=== PATIENT | female | born 1980 ===

== ENCOUNTER 2018-07-19 09:50 | Emergency (ER) | payer MEDICAID ==
[2018-07-19 10:26] VITALS: RESP 18; TEMP 98.5
--- NOTE | 2018-07-19 11:16 | ED PDOC ---
Arrival/HPI - General Chief Complaint: Female Genitourinary Time Seen by Provider: 07/19/18 10:23 Historian: Patient - History of Present Illness Narrative History of Present Illness (Text): 07/19/18 11:22 38 year old female, with no significant past medical history, presents to emergency department complaining of left-sided, lower back pain since this morning. Patient reports this is her 6th and states she has not visited any doctor so far or gotten an ultrasound. Patient states she last felt movement last night. Patient rates her level of current pain as a "5" and denies taking any medication for it. Patient denies any urinary symptoms, fevers, chills, headache, dizziness, chest pain, shortness of breath, cough, abdominal pain, nausea, vomiting, diarrhea, neck pain, or any other complaints. Patient denies any vaginal bleeding or contractions. Time/Duration: Other (morning ) Symptom Onset: Gradual Symptom Course: Unchanged Severity Level: 5 Activities at Onset: Light Context: Home Past Medical History - Provider Review Nursing Documentation Reviewed: Yes - Psychiatric Hx Substance Use: No - Anesthesia Hx Anesthesia: No Hx Anesthesia Reactions: No Hx Malignant Hyperthermia: No Family/Social History - Physician Review Nursing Documentation Reviewed: Yes Family/Social History: Unknown Family HX Smoking Status: Never Smoked Hx Alcohol Use: No Hx Substance Use: No Allergies/Home Meds Allergies/Adverse Reactions: Allergies No Known Allergies Allergy (Verified 07/19/18 10:18) Review of Systems - Physician Review All systems were reviewed & negative as marked: Yes - Review of Systems Constitutional: absent: Fevers Respiratory: absent: SOB, Cough, Wheezing Gastrointestinal: absent: Nausea, Vomiting Genitourinary Female: absent: Frequency, Hematuria, Urine Output Changes Musculoskeletal: Back Pain (lower back pain) Skin: absent: Rash Neurological: absent: Headache, Dizziness Physical Exam Vital Signs Temp Pulse Resp BP Pulse Ox 07/19/18 09:50 98.5 F 94 H 18 129/86 100 Temperature: Afebrile Blood Pressure: Normal Pulse: Regular Respiratory Rate: Normal Appearance: Positive for: Well-Appearing, Non-Toxic, Comfortable Pain Distress: None Mental Status: Positive for: Alert and Oriented X 3 - Systems Exam Head: Present: Atraumatic, Normocephalic Pupils: Present: PERRL Extroacular Muscles: Present: EOMI Conjunctiva: Present: Normal Mouth: Present: Moist Mucous Membranes Neck: Present: Normal Range of Motion Respiratory/Chest: Present: Clear to Auscultation, Good Air Exchange. No: Respiratory Distress, Accessory Muscle Use Cardiovascular: Present: Regular Rate and Rhythm, Normal S1, S2. No: Murmurs Abdomen: Present: Other (gravid abdomen). No: Tenderness, Distention, Perito concepcion Signs Back: Present: Normal Inspection, Other (mild paraspinal tenderness to right lower back ) Upper Extremity: Present: Normal Inspection. No: Cyanosis, Edema Lower Extremity: Present: Normal Inspection. No: Edema Neurological: Present: GCS=15, CN II-XII Intact, Speech Normal Skin: Present: Warm, Dry, Normal Color. No: Rashes Psychiatric: Present: Alert, Oriented x 3, Normal Insight, Normal Concentration Medical Decision Making ED Course and Treatment: 07/19/18 11:19 Impression: 38 year old female presents to emergency department complaining of lower, left-sided back pain since this morning. Differential Diagnosis included but are not limited to: -- Pyelonephritis -- UTI -- kidney stone Plan: -- Labs -- Urinalysis -- US -- Reassess and disposition Prior Visits: Notes and results from previous visits were reviewed. Progress Notes: - RAD Interpretation Narrative RAD Interpretations (Text): 07/19/18 14:54 US, reviewed by radiologist: Impression: Single living fetus with a composite sonographic age of 29 weeks 4 days. Estimated heart rate 136 beats per min. Radiology Orders: 07/19/18 10:30 AGE [US] Stat Pig Breeder: Radiologist - Scribe Statement The provider has reviewed the documentation as recorded by the Scribe Yoli Hamilton All medical record entries made by the Scribe were at my direction and personally dictated by me. I have reviewed the chart and agree that the record accurately reflects my personal performance of the history, physical exam, medical decision making, and the department course for this patient. I have also personally directed, reviewed, and agree with the discharge instructions and disposition. Disposition/Present on Arrival - Present on Arrival Any Indicators Present on Arrival: No History of DVT/PE: No History of Uncontrolled Diabetes: No Urinary Catheter: No History of Decub. Ulcer: No History Surgical Site Infection Following: None - Disposition Have Diagnosis and Disposition been Completed?: Yes Diagnosis: , UTI (urinary tract infection) Disposition: HOME/ ROUTINE Disposition Time: 13:30 Patient Plan: Discharge Condition: STABLE Discharge Instructions (ExitCare): Urinary Tract Infection, Adult (DC), - [facility] Print Language: HUNGARIAN Additional Instructions: All medical record entries made by the Scribe were at my direction and personally dictated by me. I have reviewed the chart and agree that the record accurately reflects my personal performance of the history, physical exam, medical decision making, and the department course for this patient. I have also personally directed, reviewed, and agree with the discharge instructions and disposition. Please follow up with the POSTAL TRANSPORTATION CLERK listed in the discharge paperwork in ONE WEEK Prescriptions: Cephalexin [cephalexin] 500 mg PO BID 5 Days #10 cap Multivit/Folic Acid/I [ Plus] 1 tab PO DAILY #20 tab Referrals: Kashif Ruiz MD [Medical Doctor] - Follow up with primary Tigre Nascimento [Medical Doctor] - Follow up with primary Forms: [employer] (Spanish)
[2018-07-19 12:10] LABS: PH,URINE 6.5 (4.7-8.0); URINE APPEARANCE SL CLOUDY (CLEAR); URINE BILIRUBIN NEGATIVE (NEGATIVE); URINE BLOOD LARGE (NEGATIVE); URINE COLOR YELLOW (YELLOW); URINE GLUCOSE (UA) NEGATIVE (NEGATIVE); URINE LEUKOCYTE ESTERASE LARGE Leu/uL (NEGATIVE); URINE PROTEIN TRACE mg/dL (<30 mg/dL); URINE UROBILINOGEN 0.2 E.U./dL (<1 E.U./dL)
[2018-07-19 12:29] LABS: URINE AMORPHOUS SEDIMENT FEW /hpf; URINE BACTERIA MANY /hpf; URINE RBC 25 - 30 /hpf (0-2); URINE WBC 25 - 30 /hpf (0-6)
[2018-07-19 13:01] LABS: ALBUMIN 4.2 g/dL (3.0-4.8); ALT/SGPT 15 U/L (7-56); AST/SGOT 16 U/L (14-36); BLOOD UREA NITROGEN 8 mg/dL (7-21); CALCIUM 9.5 mg/dL (8.4-10.5); GFR NON-AFRICAN AMERICAN > 60
[2018-07-19 13:08] LABS: BASO # 0.01 K/mm3 (0.0-2.0); BASO % 0.2 % (0.0-3.0); EOS # 0.1 (0.0-0.7); EOS % 1.2 % (1.5-5.0); GRAN # 4.31 (1.4-6.5); GRAN % 66.3 % (50.0-68.0); HEMOGLOBIN 10.4 g/dL (12.0-16.0); LYMPH # 1.8 (1.2-3.4); LYMPH % 27.2 % (22.0-35.0); MEAN CELL VOLUME 86.1 fl (80.0-105.0); MEAN CORPUSCULAR HEMOGLOBIN 28.9 pg (25.0-35.0); MEAN CORPUSCULAR HGB CONC 33.5 g/dl (31.0-37.0); MEAN PLATELET VOLUME 10.7 fl (7.0-11.0); MONO # 0.3 (0.1-0.6); MONO % 5.1 % (1.0-6.0); RBC 3.6 10^6/uL (3.5-6.1); WHITE BLOOD COUNT 6.5 10^3/uL (4.5-11.0)
--- NOTE | 2018-07-19 13:44 | US ---
Indication: w/ decreased movement Comparison: None available Technique: Real-time ultrasound was performed through the pelvis. Findings: There is a single living fetus in breech presentation. Amniotic fluid volume is within normal limits, 10.5 cm. Anterior placenta. The placenta is not previa. Bilateral ovaries are not identified. There are no adnexal masses or cysts evident. Cervix length measures approximately 4.8 cm. The study was performed for the emergent evaluation of decreased movement, and the whole anatomic survey of the fetus was not performed. This should be performed on an outpatient elective basis as clinically warranted. Measurements and calculations: Fetus has a composite sonographic age of 29 weeks 4 days. This calculation is based on the biparietal diameter, head circumference, abdominal circumference, and femur length. Estimated heart rate 136 beats per min. Estimated weight 1331 g. Impression: Single living fetus with a composite sonographic age of 29 weeks 4 days. Estimated heart rate 136 beats per min.
[2018-07-19 13:50] VITALS: BP 129/82; PULSE 78; O2SAT 98
== END 2018-07-19 13:52 | disposition home or self-care (01) ==
LOC: ED 09:50
DX: O23.43 Unspecified infection of urinary tract in pregnancy, third trimester (principal); Z3A.29 29 weeks gestation of pregnancy